=== PATIENT | male | born 1970 | race Caucasian/White ===

== ENCOUNTER 2019-10-24 19:11 | Emergency (ER) | payer SELFPAY ==
--- NOTE | 2019-10-24 19:31 | ER Document Report ---
ED Medical Screen (RME) - General Chief Complaint: Low Blood Pressure Stated Complaint: LOW BLOOD PRESSURE Time Seen by Provider: 10/24/19 19:21 Primary Care Provider: GILMAR DEXTER [Primary Care Provider] - Follow up as needed Mode of Arrival: Ambulatory Information source: Patient Notes: 49-year-old male presented to ED for complaint of fatigue, weakness, elevated bl ood sugar, and low blood pressure when at the primary care doctor. states the doctor took his blood pressure multiple times in the highest he got was 68/35, states they went and got a burger on the way here and then came to the emergency room. The manual blood pressure was 118/62 and the Dinamap was 88/58 on his right arm. Patient is very tired and fatigued. I have greeted and performed a rapid initial assessment of this patient. A comprehensive ED assessment and evaluation of the patient, analysis of test results and completion of medical decision making process will be conducted by an additional ED providers. TRAVEL OUTSIDE OF THE [place] IN LAST 30 DAYS: No - Related Data Home Medications: levemir, humalog, ibu, MV, K, mag, benadryl, zyrtec, omeprazole, fishoil Past Medical History - Social History Chew tobacco use (# tins/day): No Frequency of alcohol use: Social Doctor's Discharge - Discharge Referrals: GILMAR DEXTER [Primary Care Provider] - Follow up as needed
[2019-10-24] MEDS: NORMAL SALINE 1000 ML 1,000 ML IV PRN ×2 (20:11→20:35)
--- NOTE | 2019-10-24 20:24 | RADIOLOGY REPORT (SQ) ---
EXAM DESCRIPTION: XR CHEST 2 VIEWS COMPLETED DATE/TME: 10/24/2019 19:23 CLINICAL HISTORY: 49 years Male body ache COMPARISON: None. FINDINGS: The cardiomediastinal silhouette appears unremarkable. No consolidating infiltrates or pleural effusions. No pneumothorax. Atelectasis in the lung bases bilaterally. IMPRESSION: There is atelectasis in the lung bases bilaterally.
[2019-10-24 20:27] LABS: APPEARANCE,URINE CLOUDY; BILIRUBIN,URINE SMALL (NEGATIVE); COLOR,URINE AMBER; GLUCOSE, URINE 50 mg/dL (NEGATIVE); KETONES,URINE TRACE mg/dL (NEGATIVE); PROTEIN,URINE 30 mg/dL (NEGATIVE); URINE SPECIFIC GRAVITY 1.021
[2019-10-24 20:34] LABS: ABSOLUTE EOSINOPHILS # (AUTO) 0.3 10^3/uL (0.0-0.6); ABSOLUTE LYMPHOCYTES (AUTO) 2.7 10^3/uL (0.5-4.7); ABSOLUTE MONOCYTES (AUTO) 0.8 10^3/uL (0.1-1.4); BASOPHILS % (AUTO) 0.6 % (0-2); HEMATOCRIT 40.1 % (37.9-51.0); HEMOGLOBIN 13.9 g/dL (13.5-17.0); LYMPHOCYTES % (AUTO) 34.6 % (13-45); MEAN CORPUSCULAR HEMOGLOBIN 30.7 pg (27.0-33.4); MEAN CORPUSCULAR HGB CONC 34.7 g/dL (32.0-36.0); MEAN CORPUSCULAR VOLUME 88 fl (80-97); MONOCYTES % (AUTO) 9.7 % (3-13); PLATELET COUNT 264 10^3/uL (150-450); RED BLOOD COUNT 4.54 10^6/uL (4.35-5.55); RED CELL DISTRIBUTION WIDTH 13.4 % (11.5-14.0); SEGMENTED NEUTROPHILS % (AUTO) 51.1 % (42-78); TOTAL CELLS COUNTED % (AUTO) 100 %; WHITE BLOOD COUNT 7.9 10^3/uL (4.0-10.5)
[2019-10-24 20:35] LABS: VENOUS BLOOD BASE EXCESS -2.5 mmol/L; VENOUS BLOOD HCO3 22.1 mmol/L (20-32); VENOUS BLOOD PH 7.38 (7.30-7.42)
[2019-10-24 20:55] LABS: ALBUMIN 4.2 g/dL (3.5-5.0); ALKALINE PHOSPHATASE 78 U/L (38-126); ANION GAP 13 (5-19); ASPARTATE AMINO TRANSFERASE 25 U/L (17-59); BILIRUBIN,DIRECT 0.1 mg/dL (0.0-0.4); BILIRUBIN,TOTAL 0.5 mg/dL (0.2-1.3); BLOOD UREA NITROGEN 28 mg/dL (7-20); CARBON DIOXIDE 21 mmol/L (22-30); CHLORIDE 103 mmol/L (98-107); GLUCOSE 169 mg/dL (75-110); POTASSIUM 4.2 mmol/L (3.6-5.0); TOTAL PROTEIN 7.2 g/dL (6.3-8.2)
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
[2019-10-24 23:09] VITALS: BP 113/68
--- NOTE | 2019-10-25 23:42 | EKG REPORT ---
SEVERITY:- NORMAL ECG - SINUS RHYTHM : Confirmed by: Lorna Garcia 25-Oct-2019 23:40:56
== END 2019-10-24 23:12 | disposition home or self-care (01) ==
LOC: ER 19:11
DX: J01.20 Acute ethmoidal sinusitis, unspecified (principal); I95.9 Hypotension, unspecified; R53.1 Weakness; E11.65 Type 2 diabetes mellitus with hyperglycemia; R19.7 Diarrhea, unspecified
CPT/HCPCS: 93005; 99291; 96360; 36415; 87086; 82962; 83690; 85025; 80053; 81001; 84484; 82803; 71046; 93010; J7030